=== PATIENT | male | born 1965 | race Caucasian/White ===

== ENCOUNTER 2020-09-11 18:51 | Emergency (ER) | payer SELFPAY ==
[~2020-09-11] VITALS: Ht 175.3 cm; Wt 69.0 kg
--- NOTE | 2020-09-11 19:04 | NUR ---
Pt settled from EMS to room with day and shift mechanic RN. Clinical screen and triage completed by off-going RN. On-coming RN aware and has care of pt from this point on.
--- NOTE | 2020-09-11 19:16 | NUR ---
RECEIVED REPORT FROM PETE LONGO. ASSUMING CARE AT THIS TIME. ERPA AT BEDSIDE FOR ASSESSMENT. IVF THAT ANURADHA STARTED IS CONTINUING TO INFUSE.
[2020-09-11 19:56] LABS: MEAN CORPUSCULAR HEMOGLOBIN 32.7 pg (27.5-34.5); MEAN CORPUSCULAR HGB CONC 33.1 g/dL (33.2-36.2); MEAN PLATELET VOLUME 8.3 fL (7.4-10.4); PLATELET COUNT 165 x10^3/uL (130-400); RED BLOOD COUNT 3.96 x10^6/uL (4.38-5.82); RED CELL DISTRIBUTION WIDTH 16.2 % (9.4-14.8)
--- NOTE | 2020-09-11 19:58 | NUR ---
PT AMBULATED TO RESTROOM WITH STEADY GAIT TO PROVIDE URINE SAMPLE. UA COLLECTED AND SENT TO LAB. ANKUR FROM [facility] VISITED PT IN ROOM. PT TO BE SENT BACK TO [facility] AFTER MED CLEARANCE. Addendum: 09/11/20 at 2034 by [email or web address] PER ANKUR, PT IS NOT ON LEGAL HOLD. PT IS VOLUNTARY ADMIT TO [facility].
[2020-09-11 20:06] LABS: ALANINE AMINOTRANSFERASE 88 U/L (12-78); ALBUMIN 3.4 g/dL (3.4-5.0); ANION GAP 12 mmol/L (5-15); CALCIUM 8.3 mg/dL (8.5-10.1); CHLORIDE 112 mmol/L (98-107); CREATININE 0.91 mg/dL (0.7-1.3)
[2020-09-11 20:18] LABS: ALKALINE PHOSPHATASE 65 U/L (45-117); BILIRUBIN,TOTAL 0.3 mg/dL (0.2-1.0); TOTAL PROTEIN 6.7 g/dL (6.4-8.2)
[2020-09-11 20:19] LABS: MICROSCOPIC AUTO
[2020-09-11 20:31] LABS: MD YES
[2020-09-11 20:33] LABS: EOS#(MANUAL) 0.04 x10^3/uL (0.0-0.4); EOS% (MANUAL) 1 % (1-7); LYMPH#(MANUAL) 2.07 x10^3/uL (1-3.4); LYMPHS% (MANUAL) 53 % (22-44); MONOS#(MANUAL) 0.55 x10^3/uL (0.3-2.7); MONOS% (MANUAL) 14 % (2-9); SEG#(MANUAL) 1.25 x10^3/uL (1.8-6.8); SEGS% (MANUAL) 32 % (42-75)
[2020-09-11 20:34] LABS: <PLATELET ESTIMATE> ADEQUATE; <PLT MORPHOLOGY> NORMAL PLT MORPH; STOMATOCYTES 1+
--- NOTE | 2020-09-11 20:37 | NUR ---
ALL RESULTS ARE BACK AT THIS TIME. CHART UP FOR RECHECK.
[2020-09-11 20:43] VITALS: BP 130/89
--- NOTE | 2020-09-11 21:09 | NUR ---
PT PROVIDED TAXI VOUCHER BACK TO [facility].
== END 2020-09-11 21:21 | disposition home or self-care (01) ==
LOC: ED 21:09
DX: R10.13 Epigastric pain (principal); F10.120 Alcohol abuse with intoxication, uncomplicated; I10 Essential (primary) hypertension; E11.9 Type 2 diabetes mellitus without complications; Y90.0 Blood alcohol level of less than 20 mg/100 ml
CPT/HCPCS: 36415; 74021; 80053; 80320; 81001; 83690; 85025; 99284; G0480